=== PATIENT | male | born 1945 | race Caucasian/White ===

== ENCOUNTER 2016-08-30 08:25 | Day surgery (SDC) | payer OTHER, MEDICARE ==
--- NOTE | ~2016-08-30 | EGD ---
EGD REPORT [facility] [address] [address] NAME: FERNANDO RENDON : [birth year] STATUS : [facility] PAT#: [id number] AGE: 70 ADM/REG DATE : 08/30/16 MR#: [id number] REPORT SERV DATE: 08/30/16 DICTATED BY: ANSHUL HUANG DATE: 08/30/16 REPORT STATUS : Draft [facility] BY: [facility] DATE: 08/30/16 Endoscopy Center Patient Name: Fernando Rendon Date of : 1945 Attending MD: ANSHUL HUANG MD Procedure Date No Time: 08/30/2016 Procedure: Upper GI endoscopy Indications: Dysphagia Referring MD: DONATO QUINN Medicines: Propofol per Anesthesia Complications: No immediate complications. Procedure: Pre-Anesthesia Assessment: - ASA Grade Assessment: IV - A patient with severe systemic disease that is a constant threat to life. After obtaining informed consent, the endoscope was passed under direct vision. Throughout the procedure, the patient's blood pressure, pulse, and oxygen saturations were monitored continuously. The GIF [id number] was introduced through the mouth, and advanced to the second part of duodenum. The upper GI endoscopy was accomplished without difficulty. The patient tolerated the procedure well. Findings: A medium-sized hiatus hernia was present. A mild Schatzki ring (acquired) was found at the gastroesophageal junction. A guidewire was placed and the scope was withdrawn. Dilation was performed with a Savary dilator with no resistance at 54 Fr. Diffuse mild inflammation characterized by erosions and erythema was found in the stomach. The duodenal bulb, first part of the duodenum and 2nd part of the duodenum were normal. Impression: - Hiatus hernia. - Mild Schatzki ring. - Chronic gastritis. - Normal duodenal bulb, first part of the duodenum and 2nd part of the duodenum. Recommendation: - Discharge patient to home. Procedure Code(s): --- Professional --- 15574, Esophagogastroduodenoscopy, flexible, transoral; with insertion of guide wire followed by passage of dilator(s) through esophagus over guide wire EGD REPORT [facility] [address] [place]. [address] NAME: FERNANDO RENDON : [birth year] STATUS : [facility] PAT#: [id number] AGE: 70 ADM/REG DATE : 08/30/16 MR#: [id number] REPORT SERV DATE: 08/30/16 DICTATED BY: ANSHUL HUANG. DATE: 08/30/16 REPORT STATUS : Draft TRANSCRIBED BY: [employer] DATE: 08/30/16 Diagnosis Code(s): --- Professional --- K44.9, Diaphragmatic hernia without obstruction or gangrene K22.2, Esophageal obstruction K29.50, Unspecified chronic gastritis without bleeding R13.10, Dysphagia, unspecified CPT copyright 2013 [employer]. All rights reserved. The codes documented in this report are preliminary and upon shank burnisher review may be revised to meet current compliance requirements. Anshul Huang MD ANSHUL HUANG MD 08/30/2016 10:50 AM This report has been signed electronically. Number of Addenda: 0 Note Initiated On: 08/30/2016 10:34 AM Scope Withdrawal Time 0 hours 0 minutes 0 seconds [address] [facility] [place] [address]
[~2016-08-30 08:25] MED LIST: CARDCD180 PO; DITROPAN XL10 MG PO; DSS PO; FLEX PO; FLOMAX4 PO; K250 PO; KAPIDEX60 MG PO; LISINOPRIL40 MG PO; NEUR600 PO; NORCO1 TAB PO; NORV10 PO; SIN25 PO; ZOL100 PO
== END 2016-08-30 23:59 | disposition home or self-care (01) ==
LOC: DMU 08:25
PROVIDERS: Internal Medicine Gastroenterology
PROC: 0D748ZZ Dilation of Esophagogastric Junction, Via Natural or Artificial Opening Endoscopic (ICD-10-PCS; principal; 2016-08-30 10:30)
DX: K22.2 Esophageal obstruction (principal); K44.9 Diaphragmatic hernia without obstruction or gangrene; I10 Essential (primary) hypertension; J44.9 Chronic obstructive pulmonary disease, unspecified; I48.91 Unspecified atrial fibrillation; M79.7 Fibromyalgia; Z98.41 Cataract extraction status, right eye; Z95.810 Presence of automatic (implantable) cardiac defibrillator; Z98.42 Cataract extraction status, left eye; Z88.2 Allergy status to sulfonamides; Z98.890 Other specified postprocedural states
CPT/HCPCS: 76700; J1170; J2405